=== PATIENT | male | born 1975 | race Caucasian/White ===

== ENCOUNTER 2017-01-04 16:26 | Emergency (ER) | payer SELFPAY ==
[~2017-01-04] VITALS: Ht 170.2 cm; Wt 63.5 kg
[2017-01-04] MEDS ORDERED: IBUPROFEN 600 MG TABLET. PO ONE (17:30)
[2017-01-04] MEDS ORDERED: BACITRACIN TOPICAL OINT 14GM TUBE. TP ONE (17:30)
--- NOTE | 2017-01-04 17:30 | PHYS DOC ---
Past Medical History Past Medical History: Other Additional Past Medical Histor: WPW, scoliosis, 'brain lesion,' peridontal spirochetes, DDD Past Surgical History: Other Additional Past Surgical Histo: CARDIAC ABLATION Alcohol Use: Occasionally Drug Use: Marijuana Adult General Chief Complaint Chief Complaint: LOWER EXT PAIN HPI HPI Patient is a 41 year old male who presents with foot pain. The patient states [place] [facility] over the past 6 months, recently sleeping in bushes & walking daily. It has been raining for several days & his shoes have been wet for days. He lost his socks & has been wearing bare feet with boots. He hasn't been able to dry his clothes or sleeping bag for several nights. Reports bilateral foot pain & swelling with blisters. Also states he intermittently experiences palpitations with prolonged walking, denies any symptoms at this time. He primarily drinks caffeinated beverages & juice, very little water. Denies fevers/chills, chest pain, shortness of breath, calf pain/ swelling. Trying to get back to [place]. Review of Systems Review of Systems Constitutional: Denies fever or chills Eyes: Denies change in visual acuity HENT: Denies nasal congestion or sore throat Respiratory: Denies cough or shortness of breath Cardiovascular: Denies chest pain or edema, reports intermittent palpitations GI: Denies abdominal pain, nausea, vomiting Musculoskeletal: Denies back pain, reports foot pain Integument: Denies rash or skin lesions Neurologic: Denies headache, focal weakness or sensory changes Current Medications Current Medications Current Medications Medications (Trade) Dose Ordered Sig/Leann Start Time Stop Time Status Last Admin Dose Admin Bacitracin 1 cedric 1X ONCE 01/04/17 17:30 01/04/17 17:31 DC 01/04/17 17:38 1 CEDRIC Ibuprofen (Motrin) 600 mg 1X ONCE 01/04/17 17:30 01/04/17 17:31 DC 01/04/17 17:38 600 MG Allergies Allergies Allergies Coded Allergies Type Severity Reaction Last Updated Verified No Known Drug Allergies 01/04/17 No Physical Exam Physical Exam Constitutional: Well developed, well nourished, poor hygiene with wet unclean clothing HENT: Normocephalic, atraumatic, bilateral external ears normal, oropharynx moist, nose normal. Eyes: conjunctiva normal, no discharge. Neck: supple, no stridor. Cardiovascular: RRR HR 80s during my exam, no murmurs, no edema. Lungs & Thorax: LCTAB, no wheezing, no respiratory distress. Abdomen: soft, nontender, nondistended. Skin: Warm, dry, tick attached to right upper back, scattered erythematous sores to bilateral feet without surrounding erythema/warmth/swelling, mild generalized skin & soft tissue tenderness to bilateral feet, blister to medial aspect of right plantar surface Back: No tenderness. Extremities: No tenderness, no edema. no calf tenderness or swelling. feet as above, see skin. Neurologic: Alert and oriented X 3, no focal deficits noted. Psychologic: Affect normal, judgement normal, mood normal. Current Patient Data Vital Signs Vital Signs Date Time Temp Pulse Resp B/P Pulse Ox O2 Delivery O2 Flow Rate FiO2 01/04/17 18:03 80 16 124/78 98 01/04/17 16:30 98.3 Room Air 98.3 EKG EKG interpreted by me: sinus tachycardia rate 102, no acute ST/T wave changes, normal intervals, no ectopy.[] Radiology/Procedures Radiology/Procedures [] Course & Med Decision Making Course & Med Decision Making Pertinent Labs and Imaging studies reviewed. (See chart for details) Patient presents with foot pain after significant environmental exposure to damp conditions and lots of walking. No sign of infection. No recent trauma. Patient was provided with a shower here as well as dry socks and clothing. Given bacitracin ointment to apply to sores on feet. He is asymptomatic from palpitations at this time. Recommend rest, dry feet, change socks often, try to avoid wearing wet boots, continue bacitracin as needed, drink plenty of water daily to maintain hydration. Follow up with a primary care physician ideally within 2-3 days. Return to the emergency department for severe chest pain or shortness of breath, prolonged palpitations, signs of infection to lower extremities, any otherwise worsening condition. Discharged in stable condition, with a cab pass. Dragon Disclaimer Dragon Disclaimer This electronic medical record was generated, in whole or in part, using a voice recognition dictation system. Departure Departure Impression: Primary Impression: Friction blisters of the soles Disposition: HOME, SELF-CARE Condition: STABLE Patient Instructions: Blisters Additional Instructions: You were seen in the emergency department today for foot pain. Please try to leave feet exposed to air without wet socks or shoes, as much as possible. You can use antibiotic ointment on sores. Take ibuprofen for pain. Apply ice packs to sore areas. Be sure to drink the equivalent of at least 8 glasses of water daily. Follow up with a primary care doctor for additional concerns. Come back for hot/red/swollen skin, any otherwise worsening condition. JENELLE ROGERS MD Jan 04, 2017 17:30
[2017-01-04 18:03] VITALS: BP 124/78
--- NOTE | 2017-01-05 07:45 | EKG ---
[facility] [address] [place] [address] Test Date: 2017-01-04 Test Time: 16:43:53 Pat Name: BRITNEY FORD Department: Room: Gender: M [employer]sp[employer]: : 1975 Requested By: JENELLE ROGERS Order Number: [id number] Reading MD: Puma Kamara Measurements Intervals [place] Rate: 102 P: 64 WV: 134 QRS: 82 QRSD: 90 T: 49 QT: 326 QTc: 429 Interpretive Statements SINUS TACHYCARDIA Electronically Signed On 01-08-2017 9:49:27 CDT by Puma Kamara
== END 2017-01-04 18:04 | disposition home or self-care (01) ==
LOC: ER 16:26
DX: S90.822A Blister (nonthermal), left foot, initial encounter (principal); S90.821A Blister (nonthermal), right foot, initial encounter; R00.2 Palpitations; F12.10 Cannabis abuse, uncomplicated; I45.6 Pre-excitation syndrome; X58.XXXA Exposure to other specified factors, initial encounter; Y93.01 Activity, walking, marching and hiking; Y92.89 Other specified places as the place of occurrence of the external cause; Y99.8 Other external cause status
CPT/HCPCS: 93005; 99284-25